=== PATIENT | male | born 1950 | race Caucasian/White ===

== ENCOUNTER → 2020-04-15 | Outpatient (CLI) | payer MEDICARE, OTHER ==
--- NOTE | 2020-04-15 15:33 | Diagnostic Imaging Report ---
PROCEDURE: CT neck soft tissue without contrast. TECHNIQUE: Multiple contiguous axial images were obtained through the neck without the use of intravenous contrast. Auto Exposure Controls were utilized during the CT exam to meet ALARA standards for radiation dose reduction. INDICATION: Right-sided neck lump. COMPARISON: No prior studies are available for comparison. FINDINGS: There are large masses identified in the right neck in the posterior cervical location. There is a mass that does show some mixed areas of increased density. This measures approximately 6.6 x 5.0 cm. A more cystic-appearing lesion is noted just inferior to this. There appears to be a second mixed-density mass inferior to the dominant mass measuring 4.4 x 3.5 cm. Left neck is unremarkable. Posterior nasopharynx and oropharynx are unremarkable. Parapharyngeal fat planes are unremarkable. There are some calcifications within the oropharyngeal mucosa. Bilateral submandibular and parotid glands are unremarkable. There are mucous retention cysts or polyps in bilateral maxillary sinuses. There is some opacification of several ethmoid air cells. The sphenoid sinus and mastoid air cells are well aerated. There does appear to be some enlargement to the right lobe of the thyroid. There is a soft tissue mass anterior to the thyroid measuring 4.5 x 3.7 cm. IMPRESSION: 1. Right posterior cervical soft tissue masses as well as soft tissue mass anterior to the thyroid. This may represent lymphadenopathy, although post contrast study would be recommended for better characterization. 2. Right thyroid enlargement. Dedicated thyroid ultrasound on a nonemergent basis would be recommended. Dictated by: Dictated on workstation # [id number]
== END ==
LOC: RAD FS 14:56
PROVIDERS: ATTEND Family Medicine
DX: R22.1 Localized swelling, mass and lump, neck (principal); E04.9 Nontoxic goiter, unspecified
CPT/HCPCS: 70490